=== PATIENT | male | born 1965 | race Caucasian/White ===

== ENCOUNTER 2020-02-27 09:06 | Emergency (ER) | payer MEDICAID ==
[~2020-02-27] VITALS: Ht 177.8 cm; Wt 77.1 kg
[2020-02-27 09:06] VITALS: BP_SYST 119
[2020-02-27] MEDS ORDERED: ADENOSINE 6MG/2ML VIAL ONE ×2 (09:11→09:12)
[2020-02-27] MEDS ORDERED: ADENOSINE 6MG/2ML VIAL IVP ONE ×2 (09:45)
[2020-02-27] MEDS ORDERED: ASPIRIN 81 MG TAB.CHEW PO ONE (09:45)
[2020-02-27] MEDS ORDERED: NACL 0.9% 1,000 ML IV ONE (09:45)
[2020-02-27 09:50] LABS: BASOPHILS % (AUTO) 0.2 % (0.0-2.0); EOSINOPHILS % (AUTO) 0.4 % (0.0-4.0); HEMATOCRIT 47.2 % (36-54); LYMPHOCYTES # (AUTO) 2.3 K/uL (1.0-5.5); LYMPHOCYTES % (AUTO) 50.9 % (20.5-51.5); MEAN CORPUSCULAR HEMOGLOBIN 28 pg (27-31); MEAN CORPUSCULAR HGB CONC 34 % (32-36); MEAN CORPUSCULAR VOLUME 84 fL (79.0-98.0); MONOCYTES # (AUTO) 0.8 K/uL (0.0-1.0); NEUTROPHILS # (AUTO) 1.4 K/uL (1.8-7.7); NEUTROPHILS % (AUTO) 31.5 % (40.0-70.0); PLATELET COUNT (AUTO) 226 K/uL (130-430); RED BLOOD CELL COUNT(AUTO) 5.62 MIL/uL (4.2-6.2); RED CELL DISTRIBUTION WIDTH 13.3 % (9.0-15.0); WHITE BLOOD COUNT (AUTO) 4.5 K/uL (4.8-10.8)
[2020-02-27] MEDS ORDERED: ASPIRIN 81 MG TAB.CHEW ONE (10:06)
[2020-02-27 10:09] LABS: ANION GAP 9 (5-15); CALCIUM 8.7 mg/dL (8.4-11.0); CHLORIDE 100 mmol/L (98-107); GFR AFRICAN AMERICAN 89 mL/min (>90); GLUCOSE 138 mg/dL (70-99); POTASSIUM 3.1 mmol/L (3.5-5.1); SODIUM SERUM 136 mmol/L (136-145); UREA NITROGEN, BLOOD 12 mg/dL (8-21)
[2020-02-27 10:18] LABS: ALANINE AMINOTRANSFERASE 35 U/L (12-78); ALBUMIN 4.1 g/dL (3.4-4.8); ASPARTATE AMINOTRANSFERASE 31 U/L (10-37); TOTAL BILIRUBIN 0.6 mg/dL (0.0-1.0)
[2020-02-27 14:24] VITALS: BP_SYST 123
== END 2020-02-27 14:24 | disposition home or self-care (01) ==
LOC: SED 09:06
DX: I47.1 Supraventricular tachycardia (principal); F15.90 Other stimulant use, unspecified, uncomplicated; Z20.828 Contact with and (suspected) exposure to other viral communicable diseases
CPT/HCPCS: 36415; 71045; 80053; 83880; 84484; 85025; 93005; 96360; 99285; C9803; J0153; J7030; U0003